=== PATIENT | male | born 2000 | race African-American/Black ===

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

== ENCOUNTER 2022-02-25 10:49 | Emergency (ER) | payer MEDICAID, OTHER ==
[2022-02-25] MEDS ORDERED: Ibuprofen 200 MG TAB ONE (11:31)
== END 2022-02-25 11:54 | disposition home or self-care (01) ==
LOC: CSHERS 10:49
DX: B34.9 Viral infection, unspecified (principal); R07.2 Precordial pain; F17.290 Nicotine dependence, other tobacco product, uncomplicated
CPT/HCPCS: 71045; 93005

== ENCOUNTER 2023-11-16 02:11 | Emergency (ER) | payer OTHER, SELFPAY | END 2023-11-16 03:10 | disposition home or self-care (01) | LOC: CSHERS 02:11 | DX: S63.501A Unspecified sprain of right wrist, initial encounter (principal); F17.290 Nicotine dependence, other tobacco product, uncomplicated; W22.01XA Walked into wall, initial encounter ==